=== PATIENT | male | born 2000 | race African-American/Black ===

== ENCOUNTER 2023-04-03 19:03 | Emergency (ER) | payer OTHER ==
[~2023-04-03] VITALS: Ht 165.1 cm; Wt 68.3 kg
[2023-04-03] MEDS ORDERED: IBUP-1456 PO (22:20)
[2023-04-03] MEDS ORDERED: CEPH500C PO (22:20)
[2023-04-03 23:20] VITALS: BP 154/80
== END 2023-04-03 23:23 | disposition home or self-care (01) ==
LOC: ER 19:09
DX: S81.812A Laceration without foreign body, left lower leg, initial encounter (principal); I10 Essential (primary) hypertension; Z98.890 Other specified postprocedural states; W01.110A Fall on same level from slipping, tripping and stumbling with subsequent striking against sharp glass, initial encounter; Y93.89 Activity, other specified; Y92.89 Other specified places as the place of occurrence of the external cause; Y99.8 Other external cause status
CPT/HCPCS: 12002